=== PATIENT | male | born 1970 | race Caucasian/White ===

== ENCOUNTER → 2024-02-20 07:42 | Outpatient (CLI) | payer OTHER, SELFPAY ==
--- NOTE | 2024-02-20 07:43 | DI.US.S_ITS ---
PROCEDURE: US ABDOMEN LIMITED INDICATIONS: PALPABLE LUMP LEFT BACK TECHNIQUE: Real-time focused scanning was performed of the mid back with image documentation. COMPARISON: None. FINDINGS: Sonographic examination of the palpable lump in the subcutaneous tissues of the back shows oval density measuring 5.1 x 1.6 x 5.2 cm. This is avascular. Margins are smooth. Area is relatively homogeneous in its echo pattern. No inflammatory changes. Cutaneous tissues appear unremarkable. IMPRESSION: 5 cm lipoma in the subcutaneous tissues of the back. Dictated by: Garret Campbell M.D. on 02/20/2024 at 9:18 Approved by: Garret Campbell M.D. on 02/20/2024 at 9:21
== END ==
PROVIDERS: PCP Family Medicine; Referring Provider Family Medicine; Visit Provider Family Medicine
DX: D17.1 Benign lipomatous neoplasm of skin and subcutaneous tissue of trunk (principal)
CPT/HCPCS: 76705

== ENCOUNTER 2024-04-20 10:15 | Day surgery (SDC) | payer OTHER, SELFPAY ==
[2024-04-16 07:17] VITALS: BMI 39.1
--- NOTE | 2024-04-20 | PATH_ITS ---
[facility] Accession Number: [id number] No. of containers..01 Tissue . 01 Material submitted: . back - LEFT BACK . 01 Diagnosis: LEFT BACK, EXCISION: Mature fibroadipose tissue, consistent with lipoma. V 04/22/2024 0901 Local . 01 Electronically signed: . Jason Finnegan MD, Dermatopathologist NPI- [id number] . 01 Gross description: . Received in formalin with two patient identifiers and left back mass, is a yellow and partially brown, lobulated, soft tissue fragment, 6.8 x 4.4 x 2.3 cm, appears fully encapsulated, and is inked entirely blue. Sectioning reveals a yellow, smooth cut surface. Yeast Stacker sections are submitted in A1-A2. ([id number]) /V 04/21/2024 0811 Local . 01 Pathologist provided ICD-10: D17.9 . 01 CPT . 965158 Specimen Comment: A courtesy copy of this report has been sent to [phone] Performed at: [address] [id number] MD Sudeep Copeland MD Phone: [phone]
[2024-04-20] MEDS: LACTATED RINGERS 1,000 ML 42 ML IV (10:28)
--- NOTE | 2024-04-20 10:30 | SUR.OPER ---
Lateral on a guerra bag, head on pillow, gel axillary roll in place, bottom leg bent with gel pad under knee to foot, upper leg straight and supported with pillows. Upper arm supported by pillows and secured over bottom arm to padded arm board. Safety belt at hip, tape over blanket lower legs.
--- NOTE | 2024-04-20 10:31 | PM.OP.1 ---
Operative Date/Time/Diagnoses Date of procedure: 04/20/24 Time of procedure: 11:26 Pre-op diagnosis: Lipoma of the left Post-op diagnosis: same Procedure & Clinicians Procedure: Excisional biopsy of left back soft tissue mass Same procedure as scheduled: Yes Surgeon: Sha Boucher Weight And Test Bar Clerk: Keven Cai Anesthesia Type: Sedation Operative Notes Procedure in detail: The patient is a 53-year-old man with a left back soft tissue mass thought to be a lipoma. It was marked in the preoperative holding area. Patient was brought to operating room, placed the table right lateral decubitus position using a beanbag for support. Sedation was administered. The left midback was prepped and draped in the usual fashion and a time-out was performed. We made a 7 cm transverse incision over the mass. We dissected down through the subcutaneous adipose tissue until we encountered a soft tissue mass that appeared to be a lipoma. The lipoma was well-circumscribed and peel away easily from the surrounding subcutaneous adipose tissue. The deepest aspect of the mass was at the level of the fascia. The mass was approximately 7 cm x 5 cm x 3 cm. Additional local was injected into the muscle. The wound was then closed in layers using multiple interrupted 3-0 Vicryl dermal sutures followed by a running 4-0 Monocryl subcuticular closure. EBL: 10 mL Specimen: Left midback mass Keven CORTEZ provided assistance with exposure, retraction and closure of incisions. Post-operative Condition: stable Disposition: PACU
--- NOTE | 2024-04-20 10:32 | PM.PREOP ---
Pre-operative Note COVID-19 COVID-19 status: Not tested Interval Note History & Physical reviewed/Exam performed by Physician: Yes Changes to H&P: No ASA Class (for procedural sedation): II
[2024-04-20 10:40] VITALS: BP 137/83; PULSE 65; RESP 16; TEMP 36.3; O2SAT 98; BMI 39.1
[2024-04-20] MEDS: BUPIVACAINE 0.5% (PF) 30 ML, EPINEPHrine 0.15 MG INJ (11:10)
[2024-04-20 11:35] VITALS: BP 106/67; PULSE 56; RESP 16; TEMP 36.6; O2SAT 92
[2024-04-20 11:40] VITALS: BP 93/51; PULSE 55; RESP 16; O2SAT 93
[2024-04-20 11:45] VITALS: BP 99/42; PULSE 55; RESP 16; O2SAT 96
[2024-04-20 11:51] VITALS: BP 113/65; PULSE 54; RESP 16; O2SAT 96
[2024-04-20 11:56] VITALS: BP 139/93; PULSE 57; RESP 16; TEMP 36.7; O2SAT 97
== END 2024-04-20 12:19 | disposition home or self-care (01) ==
PROVIDERS: PCP Family Medicine; Referring Provider Surgery; Visit Provider Surgery
PROC: (CPT 21931; principal; 2024-04-20 12:00)
DX: D17.1 Benign lipomatous neoplasm of skin and subcutaneous tissue of trunk (principal)
CPT/HCPCS: 21931; J0171; J2250; J2704; J3010

== ENCOUNTER 2024-09-09 18:01 | Emergency (ER) | payer OTHER, SELFPAY ==
[2024-09-09 18:05] VITALS: BP 135/76; PULSE 65; RESP 16; TEMP 36.1; O2SAT 93; BMI 39.8
[2024-09-09 21:53] VITALS: BP 156/83; PULSE 60; RESP 20; TEMP 36.4; O2SAT 97
[2024-09-10 00:11] VITALS: BP 156/78; PULSE 87; RESP 18; TEMP 36.4; O2SAT 97
[2024-09-10 00:30] VITALS: BP 153/83
[2024-09-10] MEDS: TET,DIPH,PERTUSS(ACELL),VAC/PF 0.5 ML SYRINGE IM (00:46)
[2024-09-10] MEDS: BACITRACIN OINT 0.9 GM PCKT 1 APPLIC TOP (00:47)
[2024-09-10] MEDS: LIDOCAINE 1% (PF) 5 ML INJ (00:48)
[2024-09-10 01:00] VITALS: BP 157/77
[2024-09-10 01:11] VITALS: PULSE 70; O2SAT 97
[2024-09-10 01:30] VITALS: BP 116/58; PULSE 64; O2SAT 94
[2024-09-10 01:40] VITALS: BP 130/80; PULSE 62; O2SAT 97
--- NOTE | 2024-09-10 01:40 | ED.WOUNDLAC ---
HPI - Wound/Laceration General Chief Complaint: Wound/Laceration Stated Complaint: Finger Laceration Time Seen by Provider: 09/10/24 00:13 Source: patient Mode of arrival: Ambulatory History of Present Illness HPI narrative: 54-year-old male accidentally cut himself with a knife at home, laceration sustained to dorsal right index finger, he can move his index fentanyl well, full extension. No other injuries. He can not recall the date of his last tetanus shot. He does not take blood thinners. Bleeding controlled with local direct pressure over the small laceration wound. Related Data Home Medications Medication Instructions Recorded Confirmed mecobalamin (vitamin B12) 500 mcg 500 mcg PO DAILY 02/04/24 05/05/24 chewable tablet vitamin K2 100 mcg capsule 100 mcg PO DAILY 02/04/24 05/05/24 Previous Rx's Medication Instructions Recorded clobetasol 0.05 % topical foam 1 applic topical BID #100 grams 02/04/24 ixekizumab 80 mg/mL subcutaneous 80 mg SUBCUT Q4W #1 mL 07/02/24 auto-injector ([employer] Autoinjector) gabapentin 300 mg capsule 300 mg PO 3XD #270 caps 07/07/24 hydrocortisone 2.5 % topical 1 applic topical DAILY #28.35 grams 07/07/24 ointment meloxicam 15 mg tablet 15 mg PO DAILY #90 tabs 07/07/24 terbinafine HCl 250 mg tablet 250 mg PO DAILY #90 tabs 07/07/24 triamcinolone acetonide 0.1 % 1 applic topical BID #80 grams 07/07/24 topical cream baclofen 10 mg tablet 10 mg PO 3XD #270 tabs 07/08/24 Allergies Allergy/AdvReac Type Severity Reaction Status Date / Time No Known Drug Allergies Allergy Verified 09/09/24 18:05 Patient History Medical History (Updated 09/10/24 @ 01:45 by Len Gonzales MD) 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) Head and neck cancer (~2016) Eczema Psoriasis Chronic low back pain with bilateral sciatica Surgical History (Updated 12/18/23 @ 19:18 by Angelica Serrano) Head and neck cancer (~04/2021) History of tongue cancer (~03/2017) Family History (Updated 12/18/23 @ 19:20 by Angelica Serrano) Father Colon cancer Mother Cancer Grandfather Cancer Grandfather Colon cancer Grandmother Colon cancer Social History household members: significant other Smoking Status: Former smoker alcohol intake: current Smoking Status: Former smoker alcohol intake frequency: 3 or more drinks per day Exam Narrative Exam Narrative: GENERAL: Well-developed patient, in mild distress. HEAD: Atraumatic. Normocephalic. EYES: Pupils equal round and reactive. Extraocular motions intact. No scleral icterus. No injection or drainage. ENT: Nose without bleeding, purulent drainage. Throat without erythema, tonsillar hypertrophy or exudate. Airway patent. NECK: Trachea midline. Non tender CARDIOVASCULAR: Regular rate and rhythm without murmurs, gallops, or rubs. RESPIRATORY: Clear to auscultation. Breath sounds equal bilaterally. No wheezes, rales, or rhonchi. GASTROINTESTINAL: Abdomen soft, non-tender, nondistended. EXTREMITIES: No edema or joint tenderness. Right index finger with dorsal radial transverse laceration, I could not visualize any tendon structure, full extension. Good cap refill distal extremity. No other lacerations to hand or right upper extremity. BACK: Nontender without deformity or crepitance. No flank tenderness. NEURO: AOx3. Motor functions grossly nonfocal SKIN: No rash or erythema of visible areas Initial Vital Signs Initial Vital Signs: Vital Signs Temperature 97 F L 09/09/24 18:05 Pulse Rate 65 09/09/24 18:05 Respiratory Rate 16 09/09/24 18:05 Blood Pressure 135/76 09/09/24 18:05 Pulse Oximetry 93 09/09/24 18:05 Oxygen Delivery Method Room Air 09/09/24 18:05 Procedures Laceration Repair Laceration 1: Time of procedure: 01:45 Site: hand (Dorsal index finger, transverse laceration 1.5) Side (If applicable): right Size (cm): 1.5 Description: linear Depth: simple, single layer Local Anesthetic: lidocaine 1% (Digital block) Amount of anesthesia used (mL): 5 Pre-repair: wound explored Skin layer closed with: nylon Skin layer suture size: 5-0 Number of sutures: 3 Technique: simple, interrupted Course Orders Ordered: Discontinued Medications Bacitracin (Bacitracin Oint 0.9 Gm Pckt) 1 applic TOP NOW ONE Stop: 09/10/24 00:17 Last Admin: 09/10/24 00:47 Dose: 1 applic Documented By: AB Diphtheria/Tetanus/Acell Pertussis (Tet,Diph,Pertuss(Acell),Vac/Pf 0.5 Ml Syringe) 0.5 ml IM .ONCE ONE Stop: 09/10/24 00:17 Last Admin: 09/10/24 00:46 Dose: 0.5 ml Documented By: AB Lidocaine HCl (Lidocaine 1% 20 Ml) 5 ml INJ INTRA-OP ONE Stop: 09/10/24 00:17 Last Admin: 09/10/24 01:22 Dose: Not Given Documented By: LS Lidocaine HCl (Lidocaine 1% (Pf) 5 Ml) 5 ml INJ NOW ONE Stop: 09/10/24 00:39 Last Admin: 09/10/24 00:48 Dose: 5 ml Documented By: AB Vital Signs Vital signs: Vital Signs - 8 hr 09/10/24 00:11 09/10/24 00:30 09/10/24 01:00 Temperature 97.6 F Pulse Rate 87 Respiratory Rate 18 Blood Pressure 156/78 H 153/83 H 157/77 H Pulse Oximetry 97 Oxygen Delivery Method 09/10/24 01:11 09/10/24 01:30 09/10/24 01:30 Temperature Pulse Rate 70 64 Respiratory Rate Blood Pressure 116/58 L Pulse Oximetry 97 94 Oxygen Delivery Method 09/10/24 01:40 09/10/24 01:40 Temperature Pulse Rate 62 Respiratory Rate Blood Pressure 130/80 Pulse Oximetry 97 Oxygen Delivery Method Room Air MDM - Wound/Laceration MDM Narrative Medical decision making narrative: 54-year-old with accidental laceration dorsum right index finger, transverse laceration, no visible tendon structure, full extension. Primary closure with digital block, 5 0 Ethilon 3 interrupted sutures, finger splinted. Follow up with Orthopedic surgery, discussed partial tendon laceration a possibility, though I could not visualize any actual tendon structure, reassess finger in follow up by orthopedic surgeon. Call office Friday morning for close follow up visit. Return precautions discussed. Tetanus also updated. Discharge Plan Departure Patient Disposition: Home Clinical Impression: Finger laceration Activity Restrictions/Additional Instructions: Mr. Magana, Accidental laceration right dorsal index finger, transverse laceration. Full extension function. I could not visualize any tendinous structure but it in there it is possible to at least have partially nicked your tendon and still maintain excellent extension. Consider follow up with Orthopedic surgery in follow up. Finger splinted. Recheck orthopedic surgery on Friday, clinic information for hand surgeon Dr. Amato provided, call office Friday morning. Wear your finger splint until follow up. Tetanus shot also given as an update. Thank you for allowing our teams take care of you today. Prescriptions: No Action vitamin K2 100 mcg capsule 100 mcg PO DAILY mecobalamin (vitamin B12) 500 mcg tablet,chewable 500 mcg PO DAILY clobetasol 0.05 % foam 1 applic topical BID Qty: 100 0RF [employer] Autoinjector 80 mg/mL auto-injector 80 mg SUBCUT Q4W Qty: 1 11RF Rx Instructions: 80 mg subcutaneously every 4 weeks triamcinolone acetonide 0.1 % cream 1 applic topical BID Qty: 80 2RF hydrocortisone 2.5 % ointment 1 applic topical DAILY Qty: 28.35 3RF gabapentin 300 mg capsule 300 mg PO 3XD Qty: 270 1RF meloxicam 15 mg tablet 15 mg PO DAILY Qty: 90 1RF terbinafine HCl 250 mg tablet 250 mg PO DAILY Qty: 90 1RF baclofen 10 mg tablet 10 mg PO 3XD Qty: 270 1RF Referrals: Sincere Real MD [Primary Care Provider] - Antelmo Amtao MD [Physician] - Stand Alone Forms: Patient Portal/API/Survey
== END 2024-09-10 01:55 | disposition home or self-care (01) ==
PROVIDERS: Emergency Provider Emergency Medicine; PCP Family Medicine
DX: S61.210A Laceration without foreign body of right index finger without damage to nail, initial encounter (principal); W26.0XXA Contact with knife, initial encounter; Z23 Encounter for immunization
CPT/HCPCS: 12001; 90471; 99283; 90715

== ENCOUNTER → 2024-11-01 07:00 | Outpatient (CLI) | payer OTHER, SELFPAY ==
[2024-11-01 07:39] LABS: Add Manual Diff / Slide Review NO; Basophils Absolute Auto 100 /uL (0-100); Eosinophils Absolute Auto 200 /uL (0-450); Eosinophils Percent Auto 3.3 % (2-4); Hematocrit 39.2 % (41-53); Hemoglobin 13.4 g/dL (13.5-17.5); Lymphocytes Absolute Auto 1300 /uL (1100-4500); Lymphocytes Percent Auto 20.9 % (25-40); Mean Corpuscular HGB Conc 34.3 % (30-36); Mean Corpuscular Hemoglobin 31.2 PG (26-34); Mean Corpuscular Volume 90.9 fL (80-100); Monocytes Absolute Auto 600 /uL (0-900); Monocytes Percent Auto 10.1 % (3-14); Neutrophils Absolute Auto 3900 /uL (1500-7000); Neutrophils Percent Auto 64.7 % (50-75); Platelet Count 272 X10^3/uL (150-400); Red Blood Cell Count 4.31 X10^6/uL (4.5-5.9); Red Cell Distribution Width 13.7 % (11.6-14.8); White Blood Cell Count 6.1 X10^3/uL (4.5-11.0)
[2024-11-01 08:04] LABS: Alanine Aminotransferase 27 IU/L (<50); Albumin 4.2 g/dL (3.5-5.0); Albumin Globulin Ratio 1.4 (1.0-2.8); Alkaline Phosphatase 71 U/L (38-126); Aspartate Aminotransferase 31 IU/L (17-59); BUN Creatinine Ratio 17.1 (6-22); Bilirubin Total 0.7 mg/dL (0.2-1.3); Blood Urea Nitrogen 19 mg/dL (9-20); Calcium 9.4 mg/dL (8.4-10.2); Carbon Dioxide 21 mmol/L (22-32); Chloride 107 mmol/L (98-107); Cholesterol 197 mg/dL (140-199); Estimated Glomerular Filt Rate > 60 mL/min (>60); Glucose 109 mg/dL (70-100); HDL Cholesterol 50 mg/dL (40-60); HEMOLYSIS < 15 (0-50); LDL Cholesterol Calculated 117 mg/dL (<100); Potassium 4.3 mmol/L (3.4-5.1); Sodium 138 mmol/L (137-145); Total Protein 7.2 g/dL (6.3-8.2); Triglycerides 148 mg/dL (35-150)
[2024-11-01 08:28] LABS: TSH w/ Reflex to FT4 3.93 uIU/mL (0.47-4.68)
== END ==
PROVIDERS: PCP Family Medicine; Referring Provider Family Medicine; Visit Provider Family Medicine
DX: E78.00 Pure hypercholesterolemia, unspecified (principal); E66.9 Obesity, unspecified; Z85.89 Personal history of malignant neoplasm of other organs and systems
CPT/HCPCS: 36415; 80053; 80061; 84443; 85025

== ENCOUNTER → 2025-04-11 09:31 | Outpatient (CLI) | payer OTHER, SELFPAY ==
[2025-04-11 10:19] LABS: Influenza A - CEPHEID Flu A NEGATIVE (NEGATIVE); Influenza B - CEPHEID Flu B NEGATIVE (NEGATIVE)
[2025-04-11 10:20] LABS: COVID-19 CEPHEID 4-PLEX PCR Negative (Negative)
== END ==
PROVIDERS: PCP Family Medicine; Visit Provider Physician Assistant Medical
DX: J02.9 Acute pharyngitis, unspecified (principal)
CPT/HCPCS: 87637

== ENCOUNTER → 2025-06-20 14:53 | Outpatient (CLI) | payer OTHER, SELFPAY | PROVIDERS: PCP Family Medicine; Visit Provider Chiropractor | DX: J02.9 Acute pharyngitis, unspecified (principal) | CPT/HCPCS: 87070 ==